=== PATIENT | male | born 1955 | race Caucasian/White ===

== ENCOUNTER 2016-12-04 10:11 | Inpatient (IN) | payer MEDICARE, OTHER ==
[~2016-12-04] VITALS: Ht 180.3 cm; Wt 75.2 kg
[2016-12-04 10:38] VITALS: BP 218/80; PULSE 72; RESP 14; O2SAT 99
--- NOTE | 2016-12-04 10:52 | ED.REPORT ---
HPI-Abd Pain M 40 and Over Date of Service December 04, 2016 ED Provider: Gabriel Parsons DO Pt is a 61 y.o. male with a hx of DM II, HTN, and SD who presents to the ED via EMS c/o severe diarrhea onset 2 days ago. Pt has associated nausea,vomiting, abdominal pain described as burning, decreased PO intake, chills, and cough. Pt denies hematochezia and hematemesis. He states that his sx are similar to when he had C-Diff. He also reports that he has not taken his insulin today. EMS reports a BG of 400. They also administered Zofran en-route, pt received no relief. Nursing Notes Stated Complaint: NAUSEA/VOMITING/DIARRHEA Chief Complaint: Male Abdominal Pain Nursing Notes Reviewed: Yes Allergies: Coded Allergies: No Known Allergies (Verified , 05/17/06) Scheduled Amlodipine (Amlodipine) 10 Mg Tablet 1 TAB PO DAILY Hydrochlorothiazide (Hydrochlorothiazide) 25 Mg Tablet 1 TAB PO DAILY Insulin Aspart (NovoLOG 70/30 U100 Insulin Vial) 100 Unit/Ml Vial UNIT SUBQ HS Insulin Glargine (Lantus U100 Solostar Insulin Pen) 100 Unit/1 Ml Insuln.pen 35 UNIT SUBQ MORNING Metoprolol Tartrate (Metoprolol Tartrate) 50 Mg Tablet 2 TAB PO BID Multivitamin (Once Daily) 1 Each Tablet 1 EACH PO DAILY Trazodone (Trazodone) 100 Mg Tablet 1.5 TAB PO HS General Time Seen by MD: 10:50 Chief Complaint Diarrhea severe Hx Obtained From: Patient Arrived By: Ambulance Sudden in Onset?: Yes Onset Occurred: 2 days ago Symptom Duration: Since onset Location: : Diffuse Quality: Burning, Painful Severity: Current: Severe Recent Healthcare: No recent doctor visit, No recent hospitalization Past Medical History Past Medical History DM II HTN h/o SD Chronic back pain Past Surgical History 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 Physical Exam Initial Vital Signs Vital Signs (First) Date Time Temp Pulse Resp B/P Pulse Ox O2 Delivery O2 Flow Rate FiO2 5/6/17 10:38 37.6 72 14 218/80 99 Room Air Initial VS: Reviewed Head / Eyes: Atraumatic, Normocephalic Skin: Warm, Dry, No cyanosis Neurologic: Alert, Oriented, Nonfocal Psychiatric: Mood/affect normal, Behavior normal, Normal thought content General/Constitutional: Awake, Alert, Well appearing, Well developed, Well hydrated, Well nourished, Not toxic appearing Appearance / Presentation: Positive: Uncomfortable Respiratory / Chest: Atraumatic, Breath sounds NL, Breath sounds = bilat, No respiratory distress Cardiovascular: Heart rate NL, Regular rhythm, Heart sounds NL, Peripheral circulation NL Abdomen: Atraumatic, Soft, No distention Tenderness/Guarding/Rebound: Positive: Tender diffuse, Tender periumbilical Back: Atraumatic Interpretation & Diagnostics Lab Results Interpretation Result Diagram: 12/06/16 0550 12/05/16 0605 Test 12/04/16 11:00 12/04/16 13:43 Hemoglobin A1c 8.6% (4.8-5.6) Lipase 7U/L (13-60) Urinalysis Comment None ECG Interpretation ECG Interpretation: Left ventricular hypertrophy Inverted T-wave in lead 3 is new compared to (04/07/13) J-point elevation in anterior leads not changed from prior Time: 11:20 Interpreted by: ED physician Normal ECG Interpretation: Normal rate (61), Normal sinus rhythm CT Abd / Pelvis Interpretation IMPRESSION: 1. Findings suspicious for sigmoid and rectosigmoid colitis. No findings to suggest perforation or abscess. No obstruction. 2. Normal appendix. 3. Perinephric fat stranding which is an unexpected finding in a 61-year-old patient. No evidence for striated nephrogram or other findings to suggest infection or renal dysfunction. Dictated by: Nicci Ramírez M.D. on 12/04/2016 at 13:55 Approved by: Nicci Ramírez M.D. on 12/04/2016 at 14:01 Re-Eval/Medical Decision Med Decision/Clinical Course 61-year-old male with multiple medical problems and a history of C. difficile presents with 2 days of severe nausea, vomiting, and watery diarrhea, similar to his previous C. difficile episode. He has been unable to keep his blood pressure medicines down and upon arrival had significant hypertension. He required multiple doses of Zofran, Reglan, and Phenergan to control his nausea. At this point he was able to keep his medication down and blood pressure improved. He was also able to keep down the oral contrast but shortly after his scan is nausea returned. Stool studies are pending. His lactic acidosis and renal insufficiency were treated with IV fluids. Although patient had leukocytosis he did not meet criteria for sepsis by vital signs. Blood sugars were treated with home Lantus of 35 units once as well as Humalog 15 units and blood sugar improved. Given patient's recurrent/difficult to control symptoms, his inability to keep his medications down, his significant hyperglycemia, and his colitis - which is presumed to be C. difficile at this time, he will be admitted for further workup and treatment. Patient is agreeable to this. Source of Hx: Old records Time of Eval: 14:07 Re-Evaluation/Progress Note: Pt rechecked. States his nausea was improved but has now returned. Time of Eval: 14:27 Re-Evaluation/Progress Note: Pt rechecked. Discussed imaging and plan for admit. Pt would like time to consider being admitted before agreeing to plan. Consultation : Referral / Consult Name: Rosario Birmingham DO Consulted With: Hospitalist Call Returned at: 15:23 Ophthalmic Pathologist: Accepts admit Note: Discussed pt conditon with Dr. Birmingham. They accept admit. Counseled Regarding: Diagnosis, Lab results, Need for follow-up, When/why to return to ED Discharge & Departure Primary Impression: Colitis Additional Impressions: Nausea vomiting and diarrhea Hyperglycemia Hematuria Hypertensive urgency Lactic acidosis Leukocytosis Leukocytosis type: unspecified Qualified Code: D72.829 - Elevated white blood cell count, unspecified Renal insufficiency Disposition: ADMITTED TO HOSPITAL Vital Signs - All Vital Signs Date Time Temp Pulse Resp B/P Pulse Ox O2 Delivery O2 Flow Rate FiO2 12/04/16 14:39 64 24 163/61 97 Room Air 12/04/16 13:16 37.0 68 18 175/75 98 Room Air 12/04/16 10:38 37.6 72 14 218/80 99 Room Air )( All Prior VS Reviewed: Yes Condition: Improved Referrals: Belen Manning PA-C (PCP) Scribe Attestation Portions of this note were transcribed by July Narayan. Dr. Issa Ann personally performed the history, physical exam and medical decision-making; I reviewed and confirmed the accuracy of the information in the transcribed note. Signed by: Eugenia Presley, 12/04/16 and 1527 copies to: Belen Manning PA-C, Gary R DO December 04, 2016 10:52 JULY NARAYAN December 04, 2016 11:08 15mg/dL (NEGATIVE) Urine Occult Blood Large (NEGATIVE) Urine Nitrite Negative (NEGATIVE) Urine Bilirubin Negative (NEGATIVE) Urine Urobilinogen Normalmg/dL (NORMAL) Urine Leukocyte Esterase Negative (NEGATIVE) Urine RBC 0-2/hpf (0-2) Urine WBC 0-5/hpf (0-5) Urine Epithelial Cells Few/hpf (NONE-MOD) Urine Crystals None seen (NONE SEEN) Urine Bacteria Few/hpf (NONE-FEW) Urine Hyaline Casts None/lpf (NONE) Urine Granular Casts None seen (NONE SEEN) Urine Waxy Casts None seen (NONE SEEN) Urine Red Blood Cell Casts None seen (NONE SEEN) Urine White Blood Cell Casts None seen (NONE SEEN) Urine Mucus None seen (None Seen) Urine Trichomonas None seen (NONE SEEN) Urine Yeast None (NONE SEEN) Urinalysis Comment None Urine Culture Reflexed Not indicated ECG Interpretation ECG Interpretation: Left ventricular hypertrophy Inverted T-wave in lead 3 is new compared to (04/07/13) J-point elevation in anterior leads not changed from prior Time: 11:20 Interpreted by: ED physician Normal ECG Interpretation: Normal rate (61), Normal sinus rhythm CT Abd / Pelvis Interpretation IMPRESSION: 1. Findings suspicious for sigmoid and rectosigmoid colitis. No findings to suggest perforation or abscess. No obstruction. 2. Normal appendix. 3. Perinephric fat stranding which is an unexpected finding in a 61-year-old patient. No evidence for striated nephrogram or other findings to suggest infection or renal dysfunction. Dictated by: Nicci Ramírez M.D. on 12/04/2016 at 13:55 Approved by: Nicci Ramírez M.D. on 12/04/2016 at 14:01 Re-Eval/Medical Decision Med Decision/Clinical Course 61-year-old male with multiple medical problems and a history of C. difficile presents with 2 days of severe nausea, vomiting, and watery diarrhea, similar to his previous C. difficile episode. He has been unable to keep his blood pressure medicines down and upon arrival had significant hypertension. He required multiple doses of Zofran, Reglan, and Phenergan to control his nausea. At this point he was able to keep his medication down and blood pressure improved. He was also able to keep down the oral contrast but shortly after his scan is nausea returned. Stool studies are pending. His lactic acidosis and renal insufficiency was treated with IV fluids. Although patient had leukocytosis he did not meet criteria for sepsis by vital signs. Blood sugars were treated with home Lantus of 35 units once as well as Humalog 15 units and blood sugar improved. Given patient's recurrent/difficult to control symptoms, his inability to keep his medications down, his significant hyperglycemia, and his colitis - which is presumed to be C. difficile at this time, he will be admitted for further workup and treatment. Patient is agreeable to this. Source of Hx: Old records Time of Eval: 14:07 Re-Evaluation/Progress Note: Pt rechecked. States his nausea was improved but has now returned. Time of Eval: 14:27 Re-Evaluation/Progress Note: Pt rechecked. Discussed imaging and plan for admit. Pt would like time to consider being admitted before agreeing to plan. Consultation : Referral / Consult Name: Rosario Birmingham DO Consulted With: Hospitalist Call Returned at: 15:23 Ophthalmic Pathologist: Accepts admit Note: Discussed pt conditon with Dr. Birmingham. They accept admit. Counseled Regarding: Diagnosis, Lab results, Need for follow-up, When/why to return to ED Discharge & Departure Primary Impression: Colitis Additional Impressions: Nausea vomiting and diarrhea Hyperglycemia Hematuria Hypertensive urgency Lactic acidosis Leukocytosis Leukocytosis type: unspecified Qualified Code: D72.829 - Elevated white blood cell count, unspecified Renal insufficiency Disposition: ADMITTED TO HOSPITAL Vital Signs - All Vital Signs Date Time Temp Pulse Resp B/P Pulse Ox O2 Delivery O2 Flow Rate FiO2 12/04/16 14:39 64 24 163/61 97 Room Air 12/04/16 13:16 37.0 68 18 175/75 98 Room Air 12/04/16 10:38 37.6 72 14 218/80 99 Room Air )( All Prior VS Reviewed: Yes Condition: Improved Referrals: Belen Manning PA-C (PCP) Scribe Attestation Portions of this note were transcribed by July Narayan. Dr. Issa Ann personally performed the history, physical exam and medical decision-making; I reviewed and confirmed the accuracy of the information in the transcribed note. Signed by: Eugenia Presley, 12/04/16 and 1527 copies to: Belen Manning PA-C, Gary R DO December 04, 2016 10:52 JULY NARAYAN December 04, 2016 11:08 2. Normal appendix. 3. Perinephric fat stranding which is an unexpected finding in a 61-year-old patient. No evidence for striated nephrogram or other findings to suggest infection or renal dysfunction. Dictated by: Nicci Ramírez M.D. on 12/04/2016 at 13:55 Approved by: Nicci Ramírez M.D. on 12/04/2016 at 14:01 Re-Eval/Medical Decision Source of Hx: Old records Time of Eval: 14:07 Re-Evaluation/Progress Note: Pt rechecked. States his nausea was improved but has now returned. Time of Eval: 14:27 Re-Evaluation/Progress Note: Pt rechecked. Discussed imaging and plan for admit. Pt would like time to consider being admitted before agreeing to plan. Consultation : Referral / Consult Name: Rosario Birmingham DO Consulted With: Hospitalist Call Returned at: 15:23 Ophthalmic Pathologist: Accepts admit Note: Discussed pt conditon with Dr. Birmingham. They accept admit. Counseled Regarding: Diagnosis, Lab results, Need for follow-up, When/why to return to ED Discharge & Departure Primary Impression: Colitis Additional Impressions: Nausea vomiting and diarrhea Hyperglycemia Disposition: ADMITTED TO HOSPITAL Vital Signs - All Vital Signs Date Time Temp Pulse Resp B/P Pulse Ox O2 Delivery O2 Flow Rate FiO2 12/04/16 14:39 64 24 163/61 97 Room Air 12/04/16 13:16 37.0 68 18 175/75 98 Room Air 12/04/16 10:38 37.6 72 14 218/80 99 Room Air )( All Prior VS Reviewed: Yes Condition: Improved Referrals: Belen Manning PA-C (PCP) Eugenia Attestation Portions of this note were transcribed by July Narayan. Dr. Issa Ann personally performed the history, physical exam and medical decision-making; I reviewed and confirmed the accuracy of the information in the transcribed note. Signed by: Eugenia Presley, 12/04/16 and 2730 copies to: Belen Manning PA-C, Gary R DO December 04, 2016 10:52 JULY NARAYAN December 04, 2016 11:08
[2016-12-04] MEDS ORDERED: MetoCLOpramide 5 mg/mL 2 mL Inj IVPUSH ONE (11:05)
[2016-12-04] MEDS ORDERED: 0.9% Sodium Chloride 1,000 ML IV ONE (11:05)
[2016-12-04] MEDS ORDERED: Insulin GLARgine 100 Unit/mL Syringe SUBQ ONE (11:05)
[2016-12-04] MEDS ORDERED: Lisinopril 40 Tablet PO ONE (11:05)
[2016-12-04 11:16] LABS: BASOPHILS % (AUTO) 0.2 % (0-3); EOSINOPHILS % (AUTO) 0 % (0-5); MONOCYTES % (AUTO) 7.1 % (4-12); Mean Corpuscular Hemoglobin 30.7 pg (27.0-35.0); Mean Corpuscular Volume 89.6 fL (81-100); NEUTROPHILS % (AUTO) 83.3 % (40-74); Platelet Count 245 bil/L (150-400)
[2016-12-04 11:34] LABS: Magnesium 1.6 mg/dL (1.6-2.6)
[2016-12-04] MEDS ORDERED: Iohexol 300 mg/mL 30 mL Inj PO ONE (11:45)
[2016-12-04] MEDS ORDERED: Promethazine Inj 25 MG in 0.9% Sodium Chloride-Pha MIX 100 ML IV ONE (12:00)
[2016-12-04 13:16] VITALS: BP 175/75; PULSE 68; RESP 18; O2SAT 98
[2016-12-04 13:53] LABS: APPEARANCE,URINE CLEAR (CLEAR,HAZY); COLOR,URINE YELLOW (YELLOW); OCCULT BLOOD,URINE LARGE (NEGATIVE); PH,URINE 5.5 (5.0-8.0); UROBILINOGEN,URINE NORMAL (NORMAL)
--- NOTE | 2016-12-04 14:02 | DRSVH ---
PROCEDURE: CT ABDOMEN AND PELVIS WITH CONTRAST (PNL-7102) INDICATIONS: abdominal pain, NVD TECHNIQUE: After the administration of oral and intravenous contrast, 5 mm thick sections acquired from the diap hragms to the symphysis. 5 mm thick coronal and sagittal reformats were performed. For radiation do se reduction, the following was used: automated exposure control, adjustment of mA and/or kV accordi ng to patient size. COMPARISON: None. FINDINGS: Image quality: Breathing motion artifact limits evaluation of the midabdomen. ABDOMEN: Lung bases: There is mild atelectasis at the bilateral lung bases. Solid organs: Liver and spleen are normal in size and enhancement. Gallbladder is unremarkable. Bi liary system is non-dilated. Pancreas is atrophic. No adrenal nodules. Kidneys are normal in size a nd enhancement, without hydronephrosis. There is mild bilateral perinephric fat stranding. Peritoneum and bowel: There is a small hiatal hernia. Stomach, small bowel, and colon loops are norm al in overall caliber and wall thickness. The appendix is thin walled. Circumferential mucosal thicke abran is present within the sigmoid colon and rectosigmoid region. Pericolonic fat stranding is presen t within the rectosigmoid region. No discrete fluid collections. No free fluid or air. Nodes and vessels: No retroperitoneal or mesenteric adenopathy. Aorta and inferior vena cava are no rmal in caliber. There are scattered atheromatous calcifications throughout the aorta and iliac arter ies bilaterally. Miscellaneous: No ventral hernias. PELVIS: Genitourinary: Bladder wall thickness is normal. Miscellaneous: No inguinal hernias or adenopathy. Bones: No suspicious bony lesions. No vertebral body compression fractures. There is a nondisplaced L5-S1 left-sided pars defect. IMPRESSION: 1. Findings suspicious for sigmoid and rectosigmoid colitis. No findings to suggest perforation or ab scess. No obstruction. 2. Normal appendix. 3. Perinephric fat stranding which is an unexpected finding in a 61-year-old patient. No evidence for striated nephrogram or other findings to suggest infection or renal dysfunction. Dictated by: Nicci Ramírez M.D. on 12/04/2016 at 13:55 Approved by: Nicci Ramírez M.D. on 12/04/2016 at 14:01
[2016-12-04 14:39] VITALS: BP 163/61; PULSE 64; RESP 24; O2SAT 97
[2016-12-04] MEDS: Ondansetron 2 mg/mL 2 mL Inj IVPUSH PRN ×4 (14:39→23:53)
[2016-12-04] MEDS ORDERED: Insulin Human REGular 300 Unit/3 mL Inj SUBQ SCH (15:15)
[2016-12-04] MEDS ORDERED: MULT-666 PO (15:52)
[2016-12-04] MEDS ORDERED: TRAZ-118 PO (15:52)
[2016-12-04] MEDS ORDERED: METO50TA3 PO (15:52)
[2016-12-04] MEDS ORDERED: HYDR25TA4 PO (15:52)
[2016-12-04] MEDS ORDERED: NOVO7030I SUBQ (15:52)
[2016-12-04] MEDS ORDERED: INSU100I13 SUBQ (15:52)
[2016-12-04] MEDS ORDERED: AMLO10TA3 PO (15:52)
[2016-12-04] MEDS ORDERED: Alum-Mag Hydrox-Simeth 30 mL Suspension PO PRN (15:55)
[2016-12-04] MEDS ORDERED: Polyethylene Glycol (PEG) 17 Gm Powder PO PRN (16:15)
[2016-12-04] MEDS ORDERED: Glucose 40% Oral Gel 15 Gm Tube PO PRN (16:20)
[2016-12-04 16:51] VITALS: BP 165/69; PULSE 64; RESP 18; O2SAT 96
[2016-12-04 17:47] LABS: Magnesium 1.6 mg/dL (1.6-2.6)
[2016-12-04] MEDS: 0.9% Sodium Chloride 1,000 ML IV SCH (20:08)
[2016-12-04] MEDS: Heparin 5,000 Unit/mL Inj SUBQ SCH (20:13)
[2016-12-04] MEDS: Insulin LISPRO 300 Unit/3 mL Inj SUBQ SCH ×3 (20:17→22:00)
[2016-12-04 20:45] VITALS: BP 174/67; PULSE 57; RESP 18; O2SAT 98
[2016-12-04] MEDS: Vancomycin 125 mg Oral Capsule PO SCH (21:22)
--- NOTE | 2016-12-04 22:14 | PCM.HPMED ---
Subjective Date of Service December 04, 2016 Primary Provider: Admitting Physician: Rosario Birmingham DO Primary Care Physician: Belen Manning PA-C Attending Physician: Rosario Birmingham DO Admit Status: From the Emergency Department Chief Complaint: Diarrhea, and dehydration History of Present Illness: 61-year-old white male with past medical history of diabetes mellitus, CAD status post PA and CABG, hypertension, neuropathy, & and 10 pain in his left leg after below the knee amputation, prior C. difficile colitis is presenting to the ER with diet. That has been ongoing for 2 days he says that he has abdominal pain associated with that he had fevers for 2 days. Pain is over the per the umbilical area she he also has some back pain from a recent fall. He denies shortness of breath, headaches. Endorsing some dehydration. He says that his stool is very runny he has had several bowel movements today he denies hematocrit hematochezia, hematemesis and urinary symptoms. He states that he had similar symptoms with C. difficile in 2013 had 2 weeks. He states that he had a right ankle surgery back in 2012 and a subsequent heart attack and a stroke. 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 His states the antibiotics has led to C. difficile at that time. All this happened at [facility]. Patient has missed insulin all day yesterday and today. thinks his kidneys are okay at baseline patient does not take pain medications at home for his pain. She says patient uses marijuana for pain. In the ER his temperature is 37.6, blood glucose was 400(he was given 35 units of long-acting and 15 units of chronic rapid acting insulin), follow-up blood pressure 330. White count was elevated at 13.5 bicarbonate was 17 lactic acidosis of 2.6 sodium was 133 creatinine 1.32 BUN was 30. Urine showed large blood but no infection. Home medications for hypertension were given due to high blood pressures on arrival Abdominal CT showed sigmoid and rectosigmoid colitis without abscess, perinephric fat stranding that is unusual for a 61-year-old male. Stool PCR was sent. EKG showed LVH, T-wave inversion in lead 3 there is thought to be new. Review of Systems: Gen.: No weight gain patient has been having fevers and malaise Eyes: no visual disturbances or blurring vision HEENT: No nose/throat drainage, no pain in ears or throat, no hearing loss Lymph: No lymph nodes noted Cardiac: No chest pain, orthopnea, PND, palpitations , pedal edema or dyspnea on exertion Pulmonary: wheezing or bringing up of sputum + worsening dyspnea and cough, left-sided chest pain GI symptoms: Denies hematochezia or hematemesis, endorsing poor appetite, nausea vomiting : no dysuria hematuria urinary frequency or decrease in urine output Musculoskeletal: Joint swelling no joint pain. Endorsing a back pain due to a recent fall he had a month ago Neuro: No syncope, seizures no loss of consciousness no new focal weakness, numbness or tingling Psychiatric: New new anxiety insomnia or depression Endocrine: No new heat or cold intolerances polyuria or polydipsia Hematology: No lymphadenopathy or easy bleeding or bruising noted skin: No new rashes, stasis dermatitis Allergies Coded Allergies: No Known Allergies (Verified , 05/17/06) PMH Diabetes, C. difficile, CAD status post PA, status post CABG, hypertension, neuropathy and phantom leg pain, with CHF of unknown type, CVA Surgical History Right ankle surgery, below the knee amputation of the right lower extremity, quadruple bypass Family History Mother with high blood pressure and heart disease Father with cancer of prostate Social History Hx Alcohol Use: Yes Alcoholic Drinks Per Day: couple of beers; not daily basis Hx Substance Use: Yes (marijuana- daily) Hx Tobacco Use: Yes Smoking Status: Former Smoker Living Arrangement: with Family Exam Vital Signs Vital Sign - Last Date Time Temp Pulse Resp B/P Pulse Ox O2 Delivery O2 Flow Rate FiO2 12/04/16 14:39 64 24 163/61 97 Room Air 12/04/16 13:16 37.0 Exam General: NAD, laying in bed, was sleeping until he was awoken but answered questions fine HEENT: NCAT, poor dentition Eyes: [place] conjunctivae. No ptosis, Neck: No masses, trachea midline, no thyromegaly Lungs: CTA with normal respiratory effort, no crackles or wheezes CV: RRR, no murmurs/rubs/gallops, normal PMI GI: Soft, non-tender with no hepatosplenomegaly MSK: Missing right lower extremity Skin: Warm and dry. No rash, lesions or ulcers Psych: A&O X3, with appropriate affect Lab and Diagnostics Result Diagram: 12/04/16 1100 12/04/16 1100 X-Rays, CTs and MRIs PROCEDURE: CT ABDOMEN AND PELVIS WITH CONTRAST ([id number]) IMPRESSION: 1. Findings suspicious for sigmoid and rectosigmoid colitis. No findings to suggest perforation or abscess. No obstruction. 2. Normal appendix. 3. Perinephric fat stranding which is an unexpected finding in a 61-year-old patient. No evidence for striated nephrogram or other findings to suggest infection or renal dysfunction. Dictated by: Nicci Ramírez M.D. on 12/04/2016 at 13:55 Approved by: Nicci aRmírez M.D. on 12/04/2016 at 14:01 Assessment & Plan Assessment #1 colitis, present on admission -- Stool culture pending follow the result -- Suspicion is high for C. difficile, vancomycin 125 mg every 6 hours by mouth -- Supportive care with IV hydration -- Morphine 1-2 g every 4 when necessary for pain control -- Tylenol by mouth for pain control Assessment #2 hyperglycemia present on admission: Due to missed medication at home -- Low sliding scale, patient's home insulin 35 units of Lantus every morning -- Before meals just checks -- A1c Assessment #3: Ileus, present on admission -- We will give supportive care and monitor Assessment #4 diabetes mellitus type II: -- Blood glucose management as above -- Check blood sugar upon arrival to floor Assessment #5 CAD status post PA, CABG, chronic -- Continue medications Assessment #6 hypertension, chronic -- Continue medications Assessment #7 hypertension, chronic: He was given. Home meds in the ER -- Continue to monitor and continue home medications Assessment #8 insomnia -- Continue home medication trazodone CODE STATUS: Full code Alternate decision-maker: Disposition: Pending resolution of colitis, ileus to home Pain Evaluation: Adequate Pain Control GI Prophylaxis: Proton Pump Inhibitor Resuscitation Status: CPR: Attempt Resuscitation Time spent 40 minutes Rosario Birmingham DO December 04, 2016 15:39
[2016-12-05] MEDS: MetoCLOpramide 5 mg/mL 2 mL Inj IVPUSH PRN ×4 (01:42→22:48)
[2016-12-05] MEDS: Heparin 5,000 Unit/mL Inj SUBQ SCH ×3 (02:23→17:06)
[2016-12-05] MEDS: Vancomycin 125 mg Oral Capsule PO SCH ×2 (02:55→08:04)
[2016-12-05] MEDS ORDERED: Promethazine Inj 25 MG in 0.9% Sodium Chloride-Pha MIX 100 ML IV ONE (03:35)
[2016-12-05] MEDS: 0.9% Sodium Chloride 1,000 ML IV SCH ×2 (05:48→14:31)
[2016-12-05 06:00] VITALS: BP 193/70; PULSE 63; RESP 16; O2SAT 96
[2016-12-05 06:13] VITALS: BP 170/78
[2016-12-05 06:25] LABS: BASOPHILS % (AUTO) 0.3 % (0-3); EOSINOPHILS % (AUTO) 0.1 % (0-5); MONOCYTES % (AUTO) 7.4 % (4-12); Mean Corpuscular Hemoglobin 30.6 pg (27.0-35.0); Mean Corpuscular Volume 89.9 fL (81-100); NEUTROPHILS % (AUTO) 80.9 % (40-74); Platelet Count 259 bil/L (150-400)
[2016-12-05] MEDS: Insulin LISPRO 300 Unit/3 mL Inj SUBQ SCH ×4 (08:00→21:21)
[2016-12-05] MEDS: Ondansetron 2 mg/mL 2 mL Inj IVPUSH PRN (08:11)
[2016-12-05] MEDS ORDERED: MULTIVITAMIN PO SCH (08:30)
[2016-12-05] MEDS ORDERED: AMLODIPINE PO SCH (08:30)
[2016-12-05] MEDS ORDERED: Insulin GLARgine 100 Unit/mL Syringe SUBQ SCH ×2 (08:30→21:53)
[2016-12-05 14:32] VITALS: BP 198/76; PULSE 66; RESP 16; O2SAT 96
--- NOTE | 2016-12-05 14:33 | PCM.PNMED ---
Subjective Date of Service December 05, 2016 Subjective Patient is seen and examined. He says that he is feeling much better nausea is resolved he is tolerating clear liquids okay. He wants to try advancing diet. He was given 35 units of Lantus and 15 units of rapid acting insulin in the ED at the time of arrival due to hyperglycemia. Overnight he needed hypoglycemia correction as his blood glucose dropped. Patient has never had a colonoscopy before. No other concerns Exam Vital Signs Vital Sign - Last Date Time Temp Pulse Resp B/P Pulse Ox O2 Delivery O2 Flow Rate FiO2 12/05/16 06:13 170/78 12/05/16 06:00 37.0 63 16 96 Room Air Intake and Output 12/04/16 12/04/16 12/05/16 Cumulative From/Thru 15:00 23:00 07:00 12/04/16 10:38 - 12/05/16 06:50 Intake Total 1000 ml 30 ml 1753 ml 2783 ml Output Total 0 ml 1050 ml 1050 ml Balance 1000 ml 30 ml 703 ml 1733 ml Intake Oral 30 ml 800 ml 830 ml IV Total 1000 ml 953 ml 1953 ml Output Urine Total 0 ml 1050 ml 1050 ml # Bowel Movements 0 0 Exam Gen.: No acute distress laying in bed sleeping HEENT normocephalic, atraumatic Lungs: Clear to auscultation no crackles or wheezes Heart: 2+ systolic murmur with radiation to neck, regular rate and rhythm Abdomen flat, nontender nondistended normal bowel sounds Extremities missing right lower extremity, no edema in the left extremity Vascular: Dorsalis pedis pulses are palpable in the left foot Neuro: No focal deficits Psych: Negative for anxiety and agitation IVs and Medications IV Fluids 75 mL/h normal saline Medications Reviewed: Medications were reviewed in detail Lab and Diagnostics Result Diagram: 12/05/1660412/05/16604 X-Rays, CTs and MRIs PROCEDURE: CT ABDOMEN AND PELVIS WITH CONTRAST (PNL-7102) IMPRESSION: 1. Findings suspicious for sigmoid and rectosigmoid colitis. No findings to suggest perforation or abscess. No obstruction. 2. Normal appendix. 3. Perinephric fat stranding which is an unexpected finding in a 61-year-old patient. No evidence for striated nephrogram or other findings to suggest infection or renal dysfunction. Dictated by: Nicci Ramírez M.D. on 12/04/2016 at 13:55 Approved by: Nicci Ramírez M.D. on 12/04/2016 at 14:01 Assessment & Plan Assessment #1 colitis, present on admission -- Stool culture pending follow the result -- Suspicion is high for C. difficile, vancomycin 125 mg every 6 hours by mouth : Stool PCR negative for C. difficile discontinued vancomycin -- Supportive care with IV hydration -- Morphine 1-2 g every 4 when necessary for pain control -- Tylenol by mouth for pain control -- Differential includes inflammatory versus diverticulosis versus medication overuse: He will need a colonoscopy inpatient or outpatient. The patient improves, with advancement of diet, he can probably follow up as outpatient. Will consider inpatient consult for a colonoscopy 12/06 if he does not Assessment #2 hyperglycemia present on admission: Due to missed medication at home -- Low sliding scale, patient's home insulin 35 units of Lantus every morning -- Before meals just checks -- A1c= 8.6 -- We will adjust long acting insulin based on his requirements overnight Assessment #3: Ileus, present on admission -- We will give supportive care and monitor Assessment #4 diabetes mellitus type II: -- Blood glucose management as above -- Check blood sugar upon arrival to floor Assessment #5 CAD status post [place], CABG, chronic -- Continue medications Assessment #6 hypertension, chronic -- Continue medications Assessment #7 hypertension, chronic: He was given. Home meds in the ER -- Continue to monitor and continue home medications Assessment #8 insomnia -- Continue home medication trazodone CODE STATUS: Full code Alternate decision-maker: Disposition: Pending resolution of colitis, ileus to home GI Prophylaxis: Proton Pump Inhibitor Resuscitation Status: CPR: Attempt Resuscitation Time spent 20 minutes Rosario Birmingham DO December 05, 2016 14:33
[2016-12-05 21:10] VITALS: BP 187/57; PULSE 66; RESP 16; O2SAT 97
[2016-12-05] MEDS: metroNIDAZOLE Inj 500 MG in IV Premix 1 EACH IV SCH (22:49)
[2016-12-05] MEDS: Ciprofloxacin Inj 400 MG in IV Premix 1 EACH IV SCH (23:42)
[2016-12-06] VITALS (7 sets, daily range): BP systolic 160–201; BP diastolic 68–82; PULSE 59–114; RESP 14–18; O2SAT 96–98
[2016-12-06] MEDS: Heparin 5,000 Unit/mL Inj SUBQ SCH ×3 (01:06→17:17)
[2016-12-06] MEDS: 0.9% Sodium Chloride 1,000 ML IV SCH ×2 (01:06→13:59)
[2016-12-06 06:30] LABS: Mean Corpuscular Hemoglobin 30.4 pg (27.0-35.0); Mean Corpuscular Volume 90.5 fL (81-100)
[2016-12-06 07:00] LABS: Magnesium 1.6 mg/dL (1.6-2.6); Phosphorus 2.7 mg/dL (2.5-4.9)
[2016-12-06 08:04] LABS: APPEARANCE,URINE HAZY (CLEAR,HAZY); COLOR,URINE STRAW (YELLOW); OCCULT BLOOD,URINE MODERATE (NEGATIVE); UROBILINOGEN,URINE NORMAL (NORMAL)
[2016-12-06] MEDS: MetoCLOpramide 5 mg/mL 2 mL Inj IVPUSH PRN ×3 (08:07→21:31)
[2016-12-06] MEDS: Insulin LISPRO 300 Unit/3 mL Inj SUBQ SCH ×4 (08:30→21:31)
[2016-12-06] MEDS: metroNIDAZOLE Inj 500 MG in IV Premix 1 EACH IV SCH ×2 (10:46→20:37)
[2016-12-06] MEDS: Ciprofloxacin Inj 400 MG in IV Premix 1 EACH IV SCH ×2 (11:32→21:21)
--- NOTE | 2016-12-06 13:22 | PCM.PNMED ---
Subjective Date of Service December 06, 2016 Subjective Continues to have diarrhea. Had 2 episodes of watery diarrhea this morning. Afebrile. Exam Vital Signs Vital Sign - Last Date Time Temp Pulse Resp B/P Pulse Ox O2 Delivery O2 Flow Rate FiO2 12/06/16 12:56 36.8 69 16 179/73 98 Room Air Intake and Output 12/05/16 12/05/16 12/06/16 Cumulative From/Thru 15:00 23:00 07:00 12/04/16 10:38 - 12/06/16 06:59 Intake Total 1216 ml 1603 ml 5602 ml Output Total 600 ml 900 ml 2550 ml Balance 616 ml 703 ml 3052 ml Intake Oral 0 ml 300 ml 1130 ml IV Total 1216 ml 1303 ml 4472 ml Output Urine Total 600 ml 900 ml 2550 ml # Bowel Movements 1 1 Exam Gen.: No acute distress laying in bed sleeping HEENT normocephalic, atraumatic Lungs: Clear to auscultation no crackles or wheezes Heart: 2+ systolic murmur with radiation to neck, regular rate and rhythm Abdomen flat, nontender nondistended normal bowel sounds Extremities missing right lower extremity, no edema in the left extremity Vascular: Dorsalis pedis pulses are palpable in the left foot Neuro: No focal deficits Psych: Negative for anxiety and agitation IVs and Medications Medications Reviewed: Medications were reviewed in detail Lab and Diagnostics Result Diagram: 12/06/16 0550 12/06/16 0550 X-Rays, CTs and MRIs PROCEDURE: CT ABDOMEN AND PELVIS WITH CONTRAST ([id number]) IMPRESSION: 1. Findings suspicious for sigmoid and rectosigmoid colitis. No findings to suggest perforation or abscess. No obstruction. 2. Normal appendix. 3. Perinephric fat stranding which is an unexpected finding in a 61-year-old patient. No evidence for striated nephrogram or other findings to suggest infection or renal dysfunction. Dictated by: Nicci Ramírez M.D. on 12/04/2016 at 13:55 Approved by: Nicci Ramírez M.D. on 12/04/2016 at 14:01 Assessment & Plan #1 colitis, present on admission -- Stool culture negative -- Suspicion is high for C. difficile, vancomycin 125 mg every 6 hours by mouth : Stool PCR negative for C. difficile discontinued vancomycin -- Supportive care with IV hydration -- Morphine 1-2 g every 4 when necessary for pain control -- Tylenol by mouth for pain control -- Continue ciprofloxacin and Flagyl. #2 hyperglycemia present on admission: Due to missed medication at home -- Low sliding scale, patient's home insulin 35 units of Lantus every morning. Will give 18 units tonight and switch back to home regimen tomorrow -- A1c= 8.6 -- We will adjust long acting insulin based on his requirements overnight #3: Ileus, present on admission -- We will give supportive care and monitor #4 diabetes mellitus type II: -- Blood glucose management as above -- Check blood sugar upon arrival to floor #5 CAD status post [place], CABG, chronic -- Continue medications #6 hypertension, chronic -- Continue medications #7 hypertension, chronic: He was given. Home meds in the ER -- Continue to monitor and continue home medications #8 insomnia -- Continue home medication trazodone CODE STATUS: Full code Alternate decision-maker: Disposition: Possible discharge tomorrow if continues to improve GI Prophylaxis: Proton Pump Inhibitor Resuscitation Status: CPR: Attempt Resuscitation Michael Winkler MD December 06, 2016 13:22
[2016-12-06] MEDS: Ondansetron 2 mg/mL 2 mL Inj IVPUSH PRN (17:35)
[2016-12-06] MEDS ORDERED: Insulin GLARgine 100 Unit/mL Syringe SUBQ SCH (21:00)
[2016-12-07] VITALS (7 sets, daily range): BP systolic 161–178; BP diastolic 68–82; PULSE 62–67; RESP 20–24; O2SAT 94–98
[2016-12-07] MEDS: Heparin 5,000 Unit/mL Inj SUBQ SCH ×2 (00:41→08:14)
[2016-12-07] MEDS: 0.9% Sodium Chloride 1,000 ML IV SCH ×3 (01:52→13:19)
[2016-12-07] MEDS: Insulin LISPRO 300 Unit/3 mL Inj SUBQ SCH ×2 (08:00→12:25)
[2016-12-07] MEDS: metroNIDAZOLE Inj 500 MG in IV Premix 1 EACH IV SCH (08:08)
[2016-12-07] MEDS: MetoCLOpramide 5 mg/mL 2 mL Inj IVPUSH PRN ×2 (08:25→13:16)
[2016-12-07 09:51] LABS: BASOPHILS % (AUTO) 0.4 % (0-3); EOSINOPHILS % (AUTO) 0.7 % (0-5); MONOCYTES % (AUTO) 10.4 % (4-12); Mean Corpuscular Hemoglobin 30.5 pg (27.0-35.0); Mean Corpuscular Volume 89.7 fL (81-100); NEUTROPHILS % (AUTO) 71.6 % (40-74); Platelet Count 225 bil/L (150-400)
[2016-12-07] MEDS ORDERED: 0.9% Sodium Chloride 500 ML IV ONE (11:30)
--- NOTE | 2016-12-07 15:06 | PCM.DIMED ---
Discharge Instructions Date of Service December 07, 2016 Dates of Hospitalization December 04, 2016 at 15:25 Discharge Diagnosis Discharge Diagnosis #1 colitis, present on admission #2 Acute kidney injury on CKD #3: Ileus, present on admission,resolved #4 diabetes mellitus type II: #5 CAD status post [place], CABG, chronic #6 hypertension, chronic Test Results CT abdomen 1. Findings suspicious for sigmoid and rectosigmoid colitis. No findings to suggest perforation or abscess. No obstruction. 2. Normal appendix. 3. Perinephric fat stranding which is an unexpected finding in a 61-year-old patient. No evidence for striated nephrogram or other findings to suggest infection or renal dysfunction. Diet Diabetic Activity Limited until seen by PCP Call your provider Fever or Chills, Shortness of breath, Bleeding, Chest pain, Vomitting, Excessive diarrhea, Weakness (unilateral) Patient Instructions You were hospitalized due to colitis. Please continue Augmentin and Flagyl for 3 more days. You also had some acute kidney injury and have been treated with IV fluids. Creatinine up on discharge 1.67. Spoke with your PCP Kacy Manning.Please follow-up with PCP in 2 days to recheck your kidney function test. Please keep yourself hydrated. Follow-up plan Please follow-up with PCP in 2 days. Follow-up Provider: Belen Manning PA-C Follow-up with PCP in: 1 week Michael Winkler MD December 07, 2016 15:06
[2016-12-07] MEDS ORDERED: AMOX1TAB11 PO (15:09)
[2016-12-07] MEDS ORDERED: METR500T PO (15:09)
--- NOTE | 2016-12-07 15:49 | PCM.DC.MED ---
Discharge Summary Date of Service December 07, 2016 Dates of Hospitalization Date of Hospital Admission December 04, 2016 at 15:25 Date of Discharge: December 07, 2016 Providers: Admitting Physician: Rosario Birmingham DO Primary Care Physician: Belen Manning PA-C Attending Physician: Rosario Birmingham DO Diagnosis at Time of Discharge Diagnosis at Time of Discharge #1 colitis, present on admission #2 Acute kidney injury on CKD #3: Ileus, present on admission,resolved #4 diabetes mellitus type II: #5 CAD status post MT, CABG, chronic #6 hypertension, chronic Consultations none Procedures XRay, CTs & MRIs PROCEDURE: CT ABDOMEN AND PELVIS WITH CONTRAST ([id number]) IMPRESSION: 1. Findings suspicious for sigmoid and rectosigmoid colitis. No findings to suggest perforation or abscess. No obstruction. 2. Normal appendix. 3. Perinephric fat stranding which is an unexpected finding in a 61-year-old patient. No evidence for striated nephrogram or other findings to suggest infection or renal dysfunction. Dictated by: Nicci Ramírez M.D. on 12/04/2016 at 13:55 Approved by: Nicci Ramírez M.D. on 12/04/2016 at 14:01 Brief History per HPI 61-year-old white male with past medical history of diabetes mellitus, CAD status post MT and CABG, hypertension, neuropathy, & and 10 pain in his left leg after below the knee amputation, prior C. difficile colitis is presenting to the ER with diet. That has been ongoing for 2 days he says that he has abdominal pain associated with that he had fevers for 2 days. Pain is over the per the umbilical area she he also has some back pain from a recent fall. He denies shortness of breath, headaches. Endorsing some dehydration. He says that his stool is very runny he has had several bowel movements today he denies hematocrit hematochezia, hematemesis and urinary symptoms. He states that he had similar symptoms with C. difficile in 2013 had 2 weeks. He states that he had a right ankle surgery back in 2012 and a subsequent heart attack and a stroke. 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 His states the antibiotics has led to C. difficile at that time. All this happened at [facility]. Patient has missed insulin all day yesterday and today. thinks his kidneys are okay at baseline patient does not take pain medications at home for his pain. She says patient uses marijuana for pain. In the ER his temperature is 37.6, blood glucose was 400(he was given 35 units of long-acting and 15 units of chronic rapid acting insulin), follow-up blood pressure 330. White count was elevated at 13.5 bicarbonate was 17 lactic acidosis of 2.6 sodium was 133 creatinine 1.32 BUN was 30. Urine showed large blood but no infection. Home medications for hypertension were given due to high blood pressures on arrival Abdominal CT showed sigmoid and rectosigmoid colitis without abscess, perinephric fat stranding that is unusual for a 61-year-old male. Stool PCR was sent. EKG showed LVH, T-wave inversion in lead 3 there is thought to be new. Hospital Course #1 colitis, present on admission -- Stool culture negative -- Initial concern was high for C. difficile, vancomycin 125 mg every 6 hours by mouth: Stool PCR negative for C. difficile discontinued vancomycin -- Supportive care with IV hydration -- treated with ciprofloxacin and Flagyl. Discharged on Augmentin and Flagyl #2 SATHISH on CKD -Spoke with PCP Kacy Manning. Latest creatinine in August 2016 at PCP was 1.75 -Advised to follow-up in 2-3 days. #3: Ileus, present on admission,resolved #4 diabetes mellitus type II: -- Continue home insulin #5 CAD status post MT, CABG, chronic -- Continue medications #6 hypertension, chronic -- Continue medications #7 hypertension, chronic: He was given. Home meds in the ER -- Continue to monitor and continue home medications #8 insomnia -- Continue home medication trazodone Discharged home Condition on discharge stable and improved Exam Vital Signs (Last) Date Time Temp Pulse Resp B/P Pulse Ox O2 Delivery O2 Flow Rate FiO2 12/07/16 13:30 36.8 67 20 163/68 97 Room Air Exam Gen.: No acute distress HEENT normocephalic, atraumatic Lungs: Clear to auscultation no crackles or wheezes Heart: 2+ systolic murmur with radiation to neck, regular rate and rhythm Abdomen flat, nontender nondistended normal bowel sounds Extremities missing right lower extremity, no edema in the left extremity Vascular: Dorsalis pedis pulses are palpable in the left foot Neuro: No focal deficits Psych: Negative for anxiety and agitation Test 12/04/16 11:00 12/04/16 17:08 12/05/16 06:05 12/06/16 05:50 Hemoglobin A1c 8.6% (4.8-5.6) Lipase 7U/L (13-60) Lactic Acid Level 1.2mmol/L (0.4-2.0) Triglycerides Level 146mg/dL (0-149) Cholesterol Level 130mg/dL (100-199) LDL Cholesterol, Calculated 58.800mg/dL (0-99) VLDL Cholesterol 29.200mg/dL HDL Cholesterol 42mg/dL (>39) Cholesterol/HDL Ratio 3.10 (0.0-4.4) Phosphorus Level 2.7mg/dL (2.5-4.9) Magnesium Level 1.6mg/dL (1.6-2.6) Procalcitonin 0.13ng/mL (0.00-0.08) Test 12/06/16 06:30 12/07/16 09:25 12/07/16 13:15 Urine Color Straw (YELLOW) Urine Appearance Hazy (CLEAR,HAZY) Urine pH 5.0 (5.0-8.0) Urine Specific [place] 1.020 (1.003-1.035) Urine Protein 100mg/dL (NEG,TRACE) Urine Glucose (UA) 250mg/dL (NEGATIVE) Urine Ketones Negativemg/dL (NEGATIVE) Urine Occult Blood Moderate (NEGATIVE) Urine Nitrite Negative (NEGATIVE) Urine Bilirubin Negative (NEGATIVE) Urine Urobilinogen Normalmg/dL (NORMAL) Urine Leukocyte Esterase Negative (NEGATIVE) Urine RBC 0-2/hpf (0-2) Urine WBC 0-5/hpf (0-5) Urine Epithelial Cells Occasional/hpf (NONE-MOD) Urine Crystals None seen (NONE SEEN) Urine Bacteria Few/hpf (NONE-FEW) Urine Hyaline Casts None/lpf (NONE) Urine Granular Casts None seen (NONE SEEN) Urine Waxy Casts None seen (NONE SEEN) Urine Red Blood Cell Casts None seen (NONE SEEN) Urine White Blood Cell Casts None seen (NONE SEEN) Urine Mucus None seen (None Seen) Urine Trichomonas None seen (NONE SEEN) Urine Yeast None (NONE SEEN) Urinalysis Comment None Urine Culture Reflexed Not indicated Urine Random Creatinine 52mg/dL (22-328) Urine Random Sodium 105mEq/L White Blood Count 10.2th/mm3 (3.8-10.1) Red Blood Count 3.51mil/mm3 (4.40-5.80) Hemoglobin 10.7g/dL (13.8-17.2) Hematocrit 31.5% (41.0-50.0) Mean Corpuscular Volume 89.7fL (81-100) Mean Corpuscular Hemoglobin 30.5pg (27.0-35.0) Mean Corpuscular Hemoglobin Concent 34.0% (32.0-37.0) Red Cell Distribution Width 12.4% (12.3-15.4) Platelet Count 225bil/L (150-400) Neutrophils (%) (Auto) 71.6% (40-74) Lymphocytes (%) (Auto) 16.7% (14-46) Monocytes (%) (Auto) 10.4% (4-12) Eosinophils (%) (Auto) 0.7% (0-5) Basophils (%) (Auto) 0.4% (0-3) Total Bilirubin 0.3mg/dL (0.0-1.2) Aspartate Amino Transf (AST/SGOT) 33U/L (0-50) Alanine Aminotransferase (ALT/SGPT) 22U/L (0-44) Alkaline Phosphatase 96U/L (25-160) Total Protein 5.9g/dL (6.4-8.4) Albumin 3.3g/dL (3.4-5.0) Sodium Level 136mEq/L (134-144) Potassium Level 3.5mEq/L (3.5-5.2) Chloride Level 101mEq/L (97-108) Carbon Dioxide Level 22mmol/L (18-29) Blood Urea Nitrogen 19mg/dL (8-27) Creatinine 1.67mg/dL (0.76-1.27) Estimat Glomerular Filtration Rate 44mL/min (>59) Glucose Level 177mg/dL (60-99) Calcium Level 7.9mg/dL (8.5-10.1) Discharge Medications Discharge Medications Amlodipine (Amlodipine) 10 Mg Tablet 1 TAB PO DAILY (Reported) Amoxicillin/Clav K 500-125 mg (Augmentin 500) 1 Tab Tab 1 TABLET PO BID Prescribed by: NOHEMI COLLAZO MD Hydrochlorothiazide (Hydrochlorothiazide) 25 Mg Tablet 1 TAB PO DAILY (Reported ) Insulin Aspart (NovoLOG 70/30 U100 Insulin Vial) 100 Unit/Ml Vial UNIT SUBQ HS ( Reported) Insulin Glargine (Lantus U100 Solostar Insulin Pen) 100 Unit/1 Ml Insuln.pen 35 UNIT SUBQ MORNING (Reported) Metoprolol Tartrate (Metoprolol Tartrate) 50 Mg Tablet 2 TAB PO BID (Reported) Metronidazole (Flagyl) 500 Mg Tablet 500 MG PO q12 Prescribed by: NOHEMI COLLAZO MD Multivitamin (Once Daily) 1 Each Tablet 1 EACH PO DAILY (Reported) Trazodone (Trazodone) 100 Mg Tablet 1.5 TAB PO HS (Reported) Followup Plan Disposition: Home Follow-up plan Please follow-up with PCP in 2 days. Discharge Diet: Diabetic Discharge Activity: Limited until seen by PCP Patient Instructions You were hospitalized due to colitis. Please continue Augmentin and Flagyl for 3 more days. You also had some acute kidney injury and have been treated with IV fluids. Creatinine up on discharge 1.67. Spoke with your PCP Kacy Manning.Please follow-up with PCP in 2 days to recheck your kidney function test. Please keep yourself hydrated. Follow-up Provider: Belen Manning PA-C Follow-up with PCP in: 1 week Time spent 35 minutes copies to: Belen Manning PA-C, Melaku MD December 07, 2016 15:49
[2016-12-07] MEDS ORDERED: Insulin GLARgine 100 Unit/mL Syringe SUBQ SCH (21:00)
== END 2016-12-07 16:02 | disposition home or self-care (01) | DRG 392 ==
LOC: SED 10:11 → EDUNIT# 10:11 → EDBD 10:11 → OSC 15:25
PROVIDERS: ADMIT Family Medicine; ATTEND Family Medicine
DX: K52.9 Noninfective gastroenteritis and colitis, unspecified (principal); E87.2 Acidosis; N17.9 Acute kidney failure, unspecified; I10 Essential (primary) hypertension; E11.65 Type 2 diabetes mellitus with hyperglycemia; E86.0 Dehydration; G47.00 Insomnia, unspecified; G54.6 Phantom limb syndrome with pain; I25.10 Atherosclerotic heart disease of native coronary artery without angina pectoris; R31.9 Hematuria, unspecified; F12.90 Cannabis use, unspecified, uncomplicated; Z95.1 Presence of aortocoronary bypass graft; Z86.73 Personal history of transient ischemic attack (TIA), and cerebral infarction without residual deficits; I25.2 Old myocardial infarction; Z79.4 Long term (current) use of insulin; Z89.511 Acquired absence of right leg below knee; Z87.891 Personal history of nicotine dependence